=== PATIENT | female | born 1985 | race Caucasian/White ===

== ENCOUNTER 2016-11-12 09:11 | Emergency (ER) | payer OTHER ==
[2016-11-12 09:21] VITALS: RESP 16; TEMP 97.7
[2016-11-12 09:33] LABS: COLOR YELLOW; LEUKOCYTE ESTERASE,URINE NEGATIVE (NEGATIVE); NITRITE,URINE NEGATIVE (NEGATIVE); PH,URINE 6.5 (5.0-7.5)
[2016-11-12 09:40] LABS: BACTERIA 1+ /hpf (NONE SEEN); RENAL EPITHELIAL CELLS OCCASIONAL /hpf (NONE SEEN); WBC,URINE 0-1 /hpf (0-3); YEAST OCCASIONAL /hpf (NONE SEEN)
[2016-11-12] MEDS ORDERED: HYOSCYAMINE SULFATE 0.125 MG TAB PO ONE ×2 (09:48→10:32)
--- NOTE | 2016-11-12 09:56 | EDPHY ---
H & P Stated Complaint: Gen. abdominal pain worse in suprapubic region x 1 year, worse x 3 weeks. Time Seen by Provider: 11/12/16 09:28 HPI/ROS: Over the past 3 weeks this patient describes lower abdominal pain that has been constant but waxing and waning in intensity. Most of the time it is mild to moderate but at times it is severe. Last night she had of 10 in the 10 pain episode that lasted for 1 hour with mild improvement when she laid prone on the floor but no other exacerbating factors are noted except that she notes with stress she tends to feel more symptoms in her lower belly. She has not taken any analgesics for the pain. She did see her (Dr. Justin at [facility]) hi lo driver yesterday for a pelvic exam because most the pain is suprapubic and had an unrevealing pelvic exam with no abnormalities noted by the patient's report. Currently the pain is 7/10 intensity. She does have left and right lower quadrant pain associated with this is well. She has not had any significant upper belly pain. She had a similar episode of lesser intensity 1 year ago from a UTI but states that this time she does not notice any urinary symptoms so she doubts that she has UTI. ROS: No fevers chills or other constitutional symptoms Psychiatric: Increased social stress recently related to break-up with boyfriend and living with parents. HEENT: No URI symptoms or other complaints Pulmonary: No shortness of breath or cough Cardiovascular: No chest pain. No heart palpitations or lightheadedness GI: She reports decreased appetite that she attributes to stress. No nausea or vomiting. She has slightly loose stools 1-2 a day. No constipation. No diarrhea. No dark tarry stools or bloody stools. : Last menstrual period was normal timing. No vaginal discharge. No dysuria , frequency or urgency. Integumentary: No complaints Endocrine: No complaints Complete review of symptoms is otherwise negative. Source: Patient Exam Limitations: No limitations - Personal History LMP (Females 10-55): 15-21 Days Ago Current Tetanus Diphtheria and Acellular Pertussis (TDAP): Yes Tetanus Vaccine Date: within 10 years - Medical/Surgical History Hx Asthma: No Hx Chronic Respiratory Disease: No Hx Diabetes: No Hx Cardiac Disease: No Hx Renal Disease: No Hx Cirrhosis: No Hx Alcoholism: No Hx HIV/AIDS: No Hx Splenectomy or Spleen Trauma: No Other PMH: . Denies. No surgical history - Family History Significant Family History: No pertinent family hx - Social History Smoking Status: Never smoked Alcohol Use: None Drug Use: Marijuana (Occasional marijuana use) Additional Social History: She initiated a split with her boyfriend of 8 years recently and is currently living with her parents-both stressors for her she reports - Physical Exam Exam: Vital signs are normal General Appearance: Pleasant 31-year-old female Alert, no distress. Eyes: Pupils equal and round no pallor or injection. ENT, Mouth: Mucous membranes moist. Respiratory: There are no retractions, lungs are clear to auscultation. Cardiovascular: Regular rate and rhythm. Gastrointestinal: Hyperactive to normoactive bowel sounds, soft, mild suprapubic tenderness more than right or left lower quadrant tenderness. No significant right lower quadrant tenderness. No guarding or rebound. No organomegaly. No upper belly tenderness. Back: No CVA tenderness Neurological: GCS 15 with no deficits Skin: Warm and dry, no rashes. Musculoskeletal: Neck is supple nontender. Extremities are symmetrical, full range of motion. Psychiatric: Mood and affect are normal DIFFERENTIAL DIAGNOSIS: After history and physical exam differential diagnosis was considered for cystitis, , food intolerance, IBS, viral illness, doubt diverticulitis, doubt appendicitis Constitutional: Initial Vital Signs Temperature (C) 36.5 C 11/12/16 09:13 Heart Rate 77 11/12/16 09:13 Respiratory Rate 16 11/12/16 09:13 Blood Pressure 120/73 11/12/16 09:13 O2 Sat (%) 99 11/12/16 09:13 O2 Delivery Mode Room Air Allergies/Adverse Reactions: Penicillins Allergy (Intermediate, Verified 11/12/16 10:44) Rash Home Medications: Medication Instructions Recorded Ibuprofen [Motrin (*)] 600 mg PO Q6 PRN #30 tab 11/12/16 Tri Sprintec 11/12/16 Medical Decision Making - Diagnostics Imaging: Discussed imaging studies w/ teacher physically impaired Radiologist ED Course/Re-evaluation: Levsin sublingual without much change in her discomfort. She declined ibuprofen or other meds while here for analgesia. She remained stable without any other new symptoms. Review of labs reveals normal labs and negative test. Because of the persistence of her pain in her lower abdominal tenderness we proceeded with pelvic ultrasound which revealed a 2.8 cm low subserosal uterine fibroma. I counseled the patient regarding this. I placed a call to her OBGYN group but did not receive a call back. Patient understands the plan to follow up with them this week and was given a copy of her pelvic ultrasound to bring to that appointment. Discussion: Patient with uterine fibroma likely responsible for her symptoms. No other concerning findings on her workup. - Data Points Laboratory Results: Laboratory Results 11/12/16 09:55 11/12/16 09:55 Medications Given: Discontinued Medications Hyoscyamine Sulfate (Levsin, Hyomax-Sl) 0.125 mg PO EDNOW ONE Stop: 11/12/16 09:49 Last Admin: 11/12/16 10:10 Dose: 0.125 mg Hyoscyamine Sulfate (Levsin, Hyomax-Sl) 0.125 mg PO EDNOW ONE Stop: 11/12/16 10:33 Last Admin: 11/12/16 10:38 Dose: 0.125 mg Departure - Departure Disposition: Home, Routine, Self-Care Clinical Impression: Pelvic pain Uterus fibroma Qualifiers: Uterine leiomyoma location: subserous Qualified Code(s): D25.2 - Subserosal leiomyoma of uterus Condition: Good Instructions: Uterine Fibroids (ED) Additional Instructions: Diagnosis: Uterine fibroma Plan: [id number] mg per 6 hours as needed for pain Tylenol in addition if needed for pain Follow up with Dr. Justin this week regarding her fibroma. Bring the disc with her ultrasound on it to that appointment. Return for any significant worsening despite the treatment plan. Referrals: NONE *PRIMARY CARE P,. [Primary Care Provider] - As per Instructions Prescriptions: Ibuprofen [Motrin (*)] 600 mg PO Q6 PRN #30 tab PRN Reason: Pain
[2016-11-12 10:03] LABS: % IMMATURE GRANULYOCYTES 0.2 % (0.0-1.1); ABSOLUTE IMMATURE GRANULOCYTES 0.01 10^3/uL (0.00-0.10); ADD DIFF? NO; ADD MORPH? NO; ADD SCAN? NO; ATYPICAL LYMPHOCYTE FLAG 0 (0-99); FRAGMENT RBC FLAG 0 (0-99); HEMATOCRIT 44.7 % (38.0-47.0); HEMOGLOBIN 15.2 g/dL (12.6-16.3); LEFT SHIFT FLG 0 (0-99); LIPEMIA HEMOLYSIS FLAG 90 (0-99); MEAN CELL HEMOGLOBIN 28.8 pg (27.9-34.1); MEAN CELL VOLUME 84.7 fL (81.5-99.8); MEAN PLATELET VOLUME 9.7 fL (8.7-11.7); PLATELET CLUMPS FLAG 10 (0-99); PLATELET COUNT 274 10^3/uL (150-400); RED BLOOD CELL COUNT 5.28 10^6/uL (4.18-5.33); RED CELL DISTRIBUTION WIDTH 13.2 % (11.5-15.2)
[2016-11-12] MEDS ORDERED: HYOSCYAMINE SULFATE 0.125 MG TAB ONE ×2 (10:05→10:36)
[2016-11-12 10:18] LABS: ANION GAP 14 mEq/L (8-16); CALCIUM 9.6 mg/dL (8.5-10.4); CARBON DIOXIDE 23 mEq/l (22-31); CHLORIDE 106 mEq/L (97-110); CREATININE 0.7 mg/dL (0.6-1.0); GLOMERULAR FILTRATION RATE > 60; GLUCOSE 81 mg/dL (70-100); POTASSIUM 4.2 mEq/L (3.5-5.2); SODIUM 143 mEq/L (134-144)
[2016-11-12 13:03] VITALS: BP 117/66; PULSE 80; O2SAT 96
== END 2016-11-12 13:00 | disposition home or self-care (01) ==
LOC: CED 09:11
DX: D25.2 Subserosal leiomyoma of uterus (principal)
CPT/HCPCS: 76856-PO; 80048-PO; 81003-PO; 81015-PO; 84703-PO; 85025-PO

== ENCOUNTER 2016-11-13 19:07 | Emergency (ER) | payer OTHER ==
[2016-11-13 19:22] VITALS: TEMP 98.2; O2SAT 96
--- NOTE | 2016-11-13 20:00 | EDPHY ---
H & P Time Seen by Provider: 11/13/16 19:20 HPI/ROS: 31-year-old female seen here yesterday for intermittent lower abdominal pain and diagnosed with uterine fibroid 2.8 cm in size, she continues to have intermittently quite severe pain and has started taking acetaminophen with codeine that was prescribed by the [facility] [place] last night. She returns today because she feels like there must be something else wrong. She states she has a feeling of tightness, not really pain in her epigastric region. She denies nausea vomiting diarrhea. She does state she intermittently has had constipation. She denies fevers or chills she has noticed for several weeks to months of that she gets this tightness following eating meals. Upon review of her laboratories that were done yesterday in the emergency department she had a normal CBC and normal electrolytes. Review of systems General no fever no chills no weakness HEENT no eye pain no eye discharge. No eye redness, no sore throat Respiratory no cough, no shortness of breath Cardiac no chest pain, no peripheral edema GI Positive abdominal pain, no diarrhea, occasional constipation, no nausea, no vomiting no flank pain, no hematuria, no dysuria, pos uterine pain Musculoskeletal no myalgias, no joint pain Heme no easy bruising, no easy bleeding Endo no polyuria, no polydipsia Skin no rashes, no pruritus Neuro no syncope, no dizziness, no headaches Psych is no suicidal ideation, no homicidal ideation Past Medical/Surgical History: no prior surgeries Social History: no alcohol or drug use Smoking Status: Never smoked Physical Exam: 31-year-old female alert and oriented nontoxic appearance, afebrile, no acute distress HEENT atraumatic normocephalic, extraocular muscles intact, anicteric Oropharynx negative for erythema negative exudate, tolerating her own secretions Neck supple no meningismus Lungs clear to auscultation bilaterally Heart regular rate and rhythm without murmur rub or gallop Abdomen nondistended normoactive bowel sounds soft, mild tenderness to palpation both right lower quadrant and left lower quadrant without guarding without rebound Back no CVA tenderness, no step-offs, no spinal tenderness Extremities no cyanosis clubbing or edema Neuro alert and oriented, no focal deficits Constitutional: Initial Vital Signs Temperature (C) 36.8 C 11/13/16 19:19 Heart Rate 80 11/13/16 19:19 Respiratory Rate 18 11/13/16 19:19 Blood Pressure 104/83 H 11/13/16 19:19 O2 Sat (%) 96 11/13/16 19:19 O2 Delivery Mode Room Air Allergies/Adverse Reactions: Penicillins Allergy (Intermediate, Verified 11/12/16 10:44) Rash Home Medications: Medication Instructions Recorded Ibuprofen [Motrin (*)] 600 mg PO Q6 PRN #30 tab 11/12/16 Tri Sprintec 11/12/16 Hydrocodone/Acetaminophen [[place] 1 - 2 tab PO Q6H PRN #12 tab 11/13/16 5/325 (*)] Medical Decision Making ED Course/Re-evaluation: patient seen and evaluated for abdominal pain. Differential diagnosis considered irritable bowel syndrome, peptic ulcer disease, appendicitis, diverticulitis, cholecystitis, pancreatitis labs LFTs wnl lipase wnl CBC within normal limits done yesterday ultrasound done yesterday shows 2.8 cm fibroid, ovaries normal with good blood flow abd exam benign-no guarding and no rebound impression Abdominal pain, epigastric, unknown etiology-possibly secondary to acetaminophen with codeine uterine fibroid pain plan keep follow up with Gynecology this week for a plan of treatment about your uterine fibroid - Data Points Laboratory Results: 11/13/16 19:55 Total Bilirubin 0.7 mg/dL mg/dL (0.1-1.4) Conjugated Bilirubin 0.3 mg/dL mg/dL (0.0-0.5) Unconjugated Bilirubin 0.4 mg/dL mg/dL (0.0-1.1) AST 17 IU/L IU/L (14-46) ALT 30 IU/L IU/L (9-52) Alkaline Phosphatase 33 IU/L L IU/L (38-126) Total Protein 6.8 g/dL g/dL (6.3-8.2) Albumin 3.9 g/dL g/dL (3.5-5.0) Lipase 66.0 IU/L IU/L (23-300) Medications Given: Discontinued Medications Hydrocodone Bitart/Acetaminophen ([place] 5/325mg Prepack#6) 1 btl TAKEHOME EDNOW ONE Stop: 11/13/16 20:37 Last Admin: 11/13/16 20:43 Dose: 1 btl Departure - Departure Disposition: Home, Routine, Self-Care Clinical Impression: Abdominal pain, Uterine fibroid Condition: Good Instructions: Hydrocodone/Acetaminophen (By mouth), Uterine Fibroids (ED), Abdominal Pain (ED) Referrals: NONE *PRIMARY CARE P,. [Primary Care Provider] - As per Instructions Prescriptions: Hydrocodone/Acetaminophen [[place] 5/325 (*)] 1 - 2 tab PO Q6H PRN #12 tab PRN Reason: Pain, Moderate
[2016-11-13 20:18] LABS: ALBUMIN 3.9 g/dL (3.5-5.0); BILIRUBIN,TOTAL 0.7 mg/dL (0.1-1.4); BILIRUBIN-CONJUGATED 0.3 mg/dL (0.0-0.5); BILIRUBIN-UNCONJUGATED 0.4 mg/dL (0.0-1.1); TOTAL PROTEIN 6.8 g/dL (6.3-8.2)
[2016-11-13] MEDS ORDERED: HYDROCOD/APAP 5/325 PREPACK#6 BTL TAKEHOME ONE (20:36)
[2016-11-13 20:49] VITALS: BP 100/60; PULSE 76; RESP 15
== END 2016-11-13 20:46 | disposition home or self-care (01) ==
LOC: CED 19:07
DX: D25.9 Leiomyoma of uterus, unspecified (principal)
CPT/HCPCS: 80076-PO; 83690-PO

== ENCOUNTER → 2018-08-30 | Outpatient (CLI) | payer OTHER | LOC: FIMAGING 11:24 ==